=== PATIENT | female | born 1960 | race Asian ===

== ENCOUNTER 2019-10-26 20:53 | Emergency (ER) | payer OTHER, SELFPAY ==
[~2019-10-26] VITALS: Ht 167.6 cm; Wt 64.0 kg
[2019-10-26 21:07] VITALS: Ht 167.6 cm; Wt 64.0 kg
[2019-10-26 23:09] LABS: BASOPHIL % 1.3 % (0-2); RED CELL DISTRIBUTION WIDTH 13.3 % (11.5-14.5)
[2019-10-26 23:11] LABS: microscopic required? YES; urine erythrocyte NEGATIVE (NEGATIVE)
[2019-10-26 23:12] LABS: PLATELET COUNT 446 x10^3mcL (130-400)
[2019-10-26 23:19] LABS: CALCIUM 9.5 mg/dL (8.5-10.1); CARBON DIOXIDE 23.7 mmol/L (21-32); CHLORIDE SERUM 102 mmol/L (98-107); CREATININE SERUM 0.6 mg/dL (0.6-1.0); GFR1 > 60 mL/min; GLUCOSE SERUM 120 mg/dL (74-106); SODIUM SERUM 139 mmol/L (136-145)
[2019-10-26 23:23] LABS: ALKALINE PHOSPHATASE 206 U/L (46-116); ALT/SGPT 55 U/L (14-59); AST/SGOT 23 U/L (15-37); BILIRUBIN TOTAL 0.6 mg/dL (0.20-1.00); C REACTIVE PROTEIN < 0.2 mg/dL (<=0.9); LACTIC DEHYDROGENASE (LDH) 179 U/L (100-190); TOTAL PROTEIN, SERUM 7.9 g/dL (6.4-8.2)
[2019-10-27 03:37] VITALS: BP 119/71
== END 2019-10-27 03:37 | disposition home or self-care (01) ==
LOC: ED 20:53
PROVIDERS: Emergency Medicine
DX: R53.1 Weakness (principal); I10 Essential (primary) hypertension; E03.9 Hypothyroidism, unspecified
CPT/HCPCS: 36600; 83880; 85378; 87804; J0696; J7030; Q0092; Q0162